=== PATIENT | male | born 1945 | race Two or more races ===

== ENCOUNTER 2016-12-03 20:16 | Emergency (ER) | payer SELFPAY ==
[~2016-12-03] VITALS: Ht 172.7 cm; Wt 68.0 kg
[2016-12-03] MEDS ORDERED: MIRTAZAPINE15 MG ORAL (20:43)
[2016-12-03] MEDS ORDERED: NKM (20:43)
[2016-12-03] MEDS ORDERED: MOBIC15 MG ORAL (21:02)
--- NOTE | 2016-12-03 21:03 | Emergency Room Report ---
History of Present Illness General Chief Complaint: Pain Source: Patient Present Illness HPI Is a 71-year-old male with a psychiatric history. He presents with chief complaint of lateral leg pain. Left greater than right. Onset is chronic. There is no trauma. No fever or chills. Pain is 8/10. Worse with walking. He said he need OxyContin. Denies any drug use Allergies: Coded Allergies: No Known Allergies (Unverified , 12/03/16) Patient History Past Medical History: see triage record, old chart reviewed Past Surgical History: other Pertinent Family History: none Social History: Reports: smoking Immunizations: other Reviewed Nursing Documentation: PMH: Agreed, PSxH: Agreed Nursing Documentation-PMH History Of Psychiatric Problem: Yes - DEPRESSION Review of Systems Eye: Denies: blurred vision, eye pain ENT: Denies: ear pain, nose congestion, throat swelling Respiratory: Denies: cough, shortness of breath Cardiovascular: Denies: chest pain, palpitations Gastrointestinal: Denies: abdominal pain, diarrhea, nausea, vomiting Musculoskeletal: Reports: joint pain, Denies: back pain Skin: Denies: rash Neurological: Denies: headache, numbness Endocrine: Denies: increased thirst, increased urine Hematologic/Lymphatic: Denies: easy bruising All Other Systems: negative except mentioned in HPI Physical Exam Vital Signs Date Time Temp Pulse Resp B/P Pulse Ox O2 Delivery O2 Flow Rate FiO2 12/03/16 20:40 98.2 84 16 108/81 98 Room Air vitals normal Sp02 EP Interpretation: reviewed, normal General Appearance: well appearing, no apparent distress, alert Head: normocephalic, atraumatic Eyes: bilateral eye EOMI, bilateral eye PERRL ENT: hearing grossly normal, normal pharynx Neck: full range of motion, supple, no meningismus Respiratory: chest non-tender, lungs clear, normal breath sounds Cardiovascular #1: regular rate, rhythm, no murmur Gastrointestinal: normal bowel sounds, non tender, no mass, no organomegaly, no bruit, non-distended Musculoskeletal: back normal, gait/station normal, normal range of motion, other - left leg with previous tib/fib surgical scar. no new deformity Psychiatric: mood/affect normal Skin: warm/dry Medical Decision Making Diagnostic Impression: Primary Impression: Leg pain, bilateral Additional Impression: Opioid dependence Qualified Codes: F11.20 - Opioid dependence, uncomplicated ER Course Patient presents with chronic pain. No evidence of septic joint or trauma. We' ll discharge home. Suspect drugs use. He has a psychiatric history but is stable. No criteria for 5150. Last Vital Signs Date Time Temp Pulse Resp B/P Pulse Ox O2 Delivery O2 Flow Rate FiO2 12/03/16 20:40 98.2 84 16 108/81 98 Room Air Status: unchanged Disposition: HOME, SELF-CARE Condition: Stable Scripts Meloxicam* (MOBIC*) 15 Mg Tablet 15 MG ORAL DAILY, #30 TAB 0 Refills Prov: JASPAL BERGER M.D. 12/03/16 Patient Instructions: Chronic Pain Additional Instructions: Followup with your Dr. in 7 days. Abstain from drugs and alcohol. Return if worse. JASPAL BERGER M.D. December 03, 2016 21:03
[2016-12-03 21:40] VITALS: BP 108/81
== END 2016-12-03 21:40 | disposition home or self-care (01) ==
LOC: EMR 21:12
DX: M79.605 Pain in left leg (principal); M79.604 Pain in right leg; F11.20 Opioid dependence, uncomplicated; F17.200 Nicotine dependence, unspecified, uncomplicated
CPT/HCPCS: 99283

== ENCOUNTER 2016-12-15 05:55 | Emergency (ER) | payer SELFPAY ==
[~2016-12-15] VITALS: Ht 172.7 cm; Wt 68.0 kg
[~2016-12-15 05:55] MED LIST: MIRTAZAPINE15 MG ORAL; MOBIC15 MG ORAL; NKM
[2016-12-15] MEDS ORDERED: MOBIC15 MG ORAL (06:21)
--- NOTE | 2016-12-15 06:21 | Emergency Room Report ---
History of Present Illness General Chief Complaint: Pain Source: Patient Present Illness HPI Is a 71-year-old male with a history of schizophrenia. 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 He claimed that he kidnap him an injection with methamphetamine. He presents with 2 complaints. One is itching to his upper extremities. The second part is generalized pain. He wanted narcotic. Denies any fever chills denies any nausea vomiting. I saw him last time and he has the same complaint. No suicidal thought homicidal thought. Allergies: Coded Allergies: IBUPROFEN (Verified Allergy, Unknown, 12/15/16) Patient History Past Medical History: see triage record, old chart reviewed, psych hx Past Surgical History: other Pertinent Family History: none Social History: Reports: smoking Immunizations: other Reviewed Nursing Documentation: PMH: Agreed, PSxH: Agreed Nursing Documentation-PMH Past Medical History: No History, Except For Hx Hypertension: Yes Hx Diabetes: Yes Review of Systems Eye: Denies: blurred vision, eye pain ENT: Denies: ear pain, nose congestion, throat swelling Respiratory: Denies: cough, shortness of breath Cardiovascular: Denies: chest pain, palpitations Gastrointestinal: Denies: abdominal pain, diarrhea, nausea, vomiting Musculoskeletal: Denies: back pain, joint pain Skin: Denies: rash Neurological: Denies: headache, numbness Endocrine: Denies: increased thirst, increased urine Hematologic/Lymphatic: Denies: easy bruising All Other Systems: negative except mentioned in HPI Physical Exam Vital Signs Date Time Temp Pulse Resp B/P Pulse Ox O2 Delivery O2 Flow Rate FiO2 12/15/16 06:01 97.5 96 16 117/73 98 Room Air Sp02 EP Interpretation: reviewed, normal General Appearance: well appearing, no apparent distress, alert Head: normocephalic, atraumatic Eyes: bilateral eye EOMI, bilateral eye PERRL ENT: hearing grossly normal, normal pharynx Neck: full range of motion, supple, no meningismus Respiratory: chest non-tender, lungs clear, normal breath sounds Cardiovascular #1: regular rate, rhythm, no murmur Gastrointestinal: normal bowel sounds, non tender, no mass, no organomegaly, no bruit, non-distended Musculoskeletal: back normal, gait/station normal, normal range of motion Psychiatric: mood/affect normal Skin: warm/dry Medical Decision Making Diagnostic Impression: Primary Impression: Methamphetamine abuse Additional Impressions: Delusions of parasitosis Pain ER Course 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 No evidence of abscess. We'll discharge home. No evidence of DVT. Last Vital Signs Date Time Temp Pulse Resp B/P Pulse Ox O2 Delivery O2 Flow Rate FiO2 12/15/16 06:01 97.5 96 16 117/73 98 Room Air Status: improved Disposition: HOME, SELF-CARE Condition: Stable Scripts Meloxicam* (MOBIC*) 15 Mg Tablet 15 MG ORAL DAILY, #30 TAB 0 Refills Prov: JASPAL BERGER M.D. 12/15/16 Patient Instructions: PAIN, Uncertain Cause (Acute) Additional Instructions: Abstain from drugs and alcohol. Stop using methamphetamine. Return if symptom worsen. Followup with your DrEstelita in 7 days. JASPAL BEGRER M.D. Dec 15, 2016 06:21
[2016-12-15 06:26] VITALS: BP 117/73
== END 2016-12-15 06:35 | disposition home or self-care (01) ==
LOC: EMR 06:30
DX: F15.10 Other stimulant abuse, uncomplicated (principal); F22 Delusional disorders; R52 Pain, unspecified; I10 Essential (primary) hypertension; E11.9 Type 2 diabetes mellitus without complications; Z87.891 Personal history of nicotine dependence; Z88.6 Allergy status to analgesic agent
CPT/HCPCS: 99283